=== PATIENT | female | born 1960 | race Caucasian/White ===

== ENCOUNTER 2019-06-09 08:25 | Day surgery (SDC) | payer OTHER ==
[2019-06-09] MEDS ORDERED: MIDAZOLAM 1 MG/ML 2 ML INJ ×4 (10:57→10:58)
[2019-06-09] MEDS ORDERED: FENTAnyl 50 MCG/ML VIAL (10:57)
== END 2019-06-09 13:54 | disposition home or self-care (01) ==
LOC: GIL 08:25
DX: Z12.11 Encounter for screening for malignant neoplasm of colon (principal); K64.4 Residual hemorrhoidal skin tags; K57.30 Diverticulosis of large intestine without perforation or abscess without bleeding; E11.9 Type 2 diabetes mellitus without complications
CPT/HCPCS: 45378